=== PATIENT | male | born 1975 | race Asian ===

== ENCOUNTER 2017-10-28 09:43 | Outpatient (CLI) | payer BC, OTHER | END 2017-10-28 09:44 | disposition home or self-care (01) | LOC: CTENTCT 09:43 | PROVIDERS: ATTEND Otolaryngology Plastic Surgery within the Head & Neck | DX: J32.9 Chronic sinusitis, unspecified (principal) | CPT/HCPCS: 70486 ==

== ENCOUNTER 2017-11-12 07:17 | Day surgery (SDC) | payer BC ==
[2017-11-11 16:24] VITALS: BMI 23.3
[2017-11-12] MEDS ORDERED: Oxymetazoline HCl 0.05% ( 15 ML ) ONE (08:13)
[2017-11-12] MEDS ORDERED: Fentanyl 250 MCG/5 ML VIAL ONE (09:13)
[2017-11-12] MEDS ORDERED: Lidocaine 1% w/Epinephrine 1:200K 30 ML VIAL ONE (09:19)
[2017-11-12] MEDS ORDERED: Ondansetron HCl/PF 4 MG/2 ML Vial ONE (14:31)
[2017-11-12] MEDS ORDERED: Glycopyrrolate 0.2 MG/ML 5 ML SYRINGE ONE (14:31)
[2017-11-12] MEDS ORDERED: Propofol 200 MG/20 ML VIAL ONE (14:31)
[2017-11-12] MEDS ORDERED: Dexamethasone 20 MG/5 ML VIAL ONE (14:31)
[2017-11-12] MEDS ORDERED: Lidocaine 1% PF 5 ML VIAL ONE (14:31)
--- NOTE | 2017-11-13 11:47 | OP ---
DATE OF PROCEDURE: 11/12/2017 PREOPERATIVE DIAGNOSES: 1. Chronic rhinosinusitis. 2. Bilateral nasal polyposis. 3. Nasal obstruction. 4. Bilateral inferior turbinate hypertrophy. POSTOPERATIVE DIAGNOSES: 1. Chronic rhinosinusitis. 2. Bilateral nasal polyposis. 3. Nasal obstruction. 4. Bilateral inferior turbinate hypertrophy. PROCEDURES: 1. Bilateral endoscopic sinus surgery, total ethmoidectomies. 2. Bilateral endoscopic sinus surgery, maxillary antrostomies. 3. Bilateral endoscopic sinus surgery, frontal sinusotomies. 4. Bilateral inferior turbinate submucosal resection. 5. Bilateral endoscopic nasal polypectomy. SURGEON: Mauricio Toth M.D. ESTIMATED BLOOD LOSS: 50 mL. COMPLICATIONS: None. ANESTHESIA: GETA. PROCEDURE IN DETAIL: The patient was taken to the operating room and placed on the table. General e ndotracheal anesthesia was obtained by the Anesthesia staff. Tube was secured in the left lower lip. The patient was then placed in a beach chair position. Afrin pledgets were then placed in the nasa l cavity, as the patient was prepped and draped for standard nasal procedures. Following this, a 0-d egree scope was advanced into the nasal cavity. A 1% lidocaine with 1:100,000 epinephrine was inject ed via a 27-gauge needle into the inferior turbinates, middle turbinates, and the medialized nasal po lyps, which were protruding from the middle meatus bilaterally. Following this, the middle turbinate s were gently medialized with a Union elevator. Polyps were removed using the microdebrider and the uncinate process was identified bilaterally. Following this, the uncinate process was anteriorly fra ctured with a ball-ended probe. It was then removed using a microdebrider and the upbiting Blakesley forceps. Following this, the natural maxillary ostia, which was markedly occluded with nasal polyps was palpated with the ball-ended probe and gently widened using the straight microdebrider and the s traight Blakesley forceps. Following this, the ethmoidal bulla was identified bilaterally and was pu nctured in inferior aspect with the 0-degree microdebrider. Following this, the ethmoidal bulla was removed using the microdebrider and upbiting Arie forceps. Following this, the grand lamella was identified and was punctured into the posterior ethmoidal cells. Working from posterior to anterior , the ethmoidal cells were opened in a mucosal-sparing technique. Multiple polyps were removed throu ghout this process with the microdebrider and upbiting Blakesley forceps. Following this, the 45-deg ree scope and the 40-degree curved microdebrider blade was used to identify and open the frontal rece ss and frontal sinus ostia cells bilaterally. Following this, the nasal cavity was irrigated. MeroP acks were placed within the middle meatus. The inferior turbinates were then punctured on the anteri or-inferior aspect with the submucosal microdebrider and submucosal resection was performed bilateral ly of the anterior and inferior portions of the inferior turbinates. Following this, the nasal cavit y was packed with Afrin pledgets, which were later removed prior to extubation. The patient tolerate d the procedure well.
== END 2017-11-12 13:15 | disposition home or self-care (01) ==
LOC: SDC 07:17
PROVIDERS: ATTEND Otolaryngology Plastic Surgery within the Head & Neck
PROC: 09TU8ZZ Resection of Right Ethmoid Sinus, Via Natural or Artificial Opening Endoscopic (ICD-10-PCS; principal; 2017-11-12)
PROC: 099Q8ZZ Drainage of Right Maxillary Sinus, Via Natural or Artificial Opening Endoscopic (ICD-10-PCS; principal; 2017-11-12)
PROC: 09BU8ZZ Excision of Right Ethmoid Sinus, Via Natural or Artificial Opening Endoscopic (ICD-10-PCS; principal; 2017-11-12)
PROC: 09TR8ZZ Resection of Left Maxillary Sinus, Via Natural or Artificial Opening Endoscopic (ICD-10-PCS; principal; 2017-11-12)
PROC: 09BQ8ZZ Excision of Right Maxillary Sinus, Via Natural or Artificial Opening Endoscopic (ICD-10-PCS; principal; 2017-11-12)
PROC: 09TQ8ZZ Resection of Right Maxillary Sinus, Via Natural or Artificial Opening Endoscopic (ICD-10-PCS; principal; 2017-11-12)
PROC: 09BL8ZZ Excision of Nasal Turbinate, Via Natural or Artificial Opening Endoscopic (ICD-10-PCS; principal; 2017-11-12)
PROC: 09BR8ZZ Excision of Left Maxillary Sinus, Via Natural or Artificial Opening Endoscopic (ICD-10-PCS; principal; 2017-11-12)
PROC: 09TV8ZZ Resection of Left Ethmoid Sinus, Via Natural or Artificial Opening Endoscopic (ICD-10-PCS; principal; 2017-11-12)
PROC: 09BV8ZZ Excision of Left Ethmoid Sinus, Via Natural or Artificial Opening Endoscopic (ICD-10-PCS; principal; 2017-11-12)
PROC: 099R8ZZ Drainage of Left Maxillary Sinus, Via Natural or Artificial Opening Endoscopic (ICD-10-PCS; principal; 2017-11-12)
DX: J32.9 Chronic sinusitis, unspecified (principal); J33.9 Nasal polyp, unspecified; J34.2 Deviated nasal septum; J34.3 Hypertrophy of nasal turbinates; J34.89 Other specified disorders of nose and nasal sinuses; G43.909 Migraine, unspecified, not intractable, without status migrainosus; Z98.890 Other specified postprocedural states
CPT/HCPCS: 88304; J1100; J2001; J2405; J2704; J3010

== ENCOUNTER 2018-08-28 13:01 | Outpatient (CLI) | payer BC ==
--- NOTE | 2018-08-28 14:37 | RAD ---
PA AND LATERAL VIEWS OF CHEST: Date: 08/28/18 HISTORY: Nonspecific reaction to skin test without active tuberculosis. FINDINGS: The heart size is normal. The lungs are expanded without focal areas of consolidation, pneumothoraces , or pleural effusions. No acute osseous abnormalities are seen. IMPRESSION: No acute process. No radiographic evidence of active pulmonary tuberculosis. POS: [facility]
== END 2018-08-28 13:02 | disposition home or self-care (01) ==
LOC: BICRAD 13:01
PROVIDERS: ATTEND Family Medicine
DX: R76.11 Nonspecific reaction to tuberculin skin test without active tuberculosis (principal)
CPT/HCPCS: 71046